=== PATIENT | male | born 1965 | race Caucasian/White ===

== ENCOUNTER 2019-12-31 09:54 | Emergency (ER) | payer BC ==
[2019-12-31 10:07] VITALS: BP 146/101; PULSE 75
[2019-12-31 10:33] LABS: CHLORIDE,CL 104 mmol/L (98-107); SODIUM,NA 140 mmol/L (136-145)
== END 2019-12-31 11:15 | disposition left against medical advice (07) ==
LOC: LL.ED 09:54
DX: Z53.21 Procedure and treatment not carried out due to patient leaving prior to being seen by health care provider (principal)
CPT/HCPCS: 36415; 80053; 85025; 85379